=== PATIENT | male | born 1985 | race Caucasian/White ===

== ENCOUNTER 2019-08-04 08:16 | Outpatient (CLI) | payer BC ==
--- NOTE | 2019-08-04 09:35 | ULT ---
GALLBLADDER ULTRASOUND: HISTORY: GERD and chest pain. FINDINGS: The liver demonstrates increased echogenicity consistent with fatty infiltration. There is a focally hypoechoic area measuring 4.8 x 2.1 x 4.1 cm in the left/caudate lobe of the liver which may represe nt mass or focal sparing. No intrahepatic ductal dilatation is seen. No gallstones, gallbladder wal l thickening, or pericholecystic fluid is noted. The right kidney is normal. The pancreas is not we ll visualized due to overlying bowel gas. The common duct measures 3 mm in diameter. No free fluid is seen. IMPRESSION: 1. Fatty liver. 2. Focal mass versus focal fatty sparing in the liver. Further evaluation with contrast-enhanced CT is recommended. 3. No evidence of cholelithiasis. POS: OFF
== END 2019-08-04 08:17 | disposition home or self-care (01) ==
LOC: BICULT 08:16
PROVIDERS: ATTEND Physician Assistant Medical
DX: K21.9 Gastro-esophageal reflux disease without esophagitis (principal); R07.89 Other chest pain; K76.0 Fatty (change of) liver, not elsewhere classified
CPT/HCPCS: 76705

== ENCOUNTER 2019-08-20 12:11 | Outpatient (CLI) | payer BC ==
--- NOTE | 2019-08-20 13:15 | RAD ---
[facility] VIEW ONLY: Date: 08/20/2019 HISTORY: MRI clearance. Concern for metal in left eye. FINDINGS/IMPRESSION: No radiopaque foreign body is seen. POS: [facility]
--- NOTE | 2019-08-20 14:23 | MRI ---
EXAM: MRI of the abdomen without and with contrast COMPARISON: None HISTORY: Abnormal LFTs TECHNIQUE: Multiplanar multi sequence MR images were taken of the abdomen without and with IV contras t. [An MRCP was performed.] FINDINGS: Liver: There is diffuse fatty alteration the liver with an area of focal fatty sparing adjacent to th e gallbladder and falciform ligament. This likely represents the abnormality seen on ultrasound. No suspicious masses. No abnormal enhancement. Gallbladder: No filling defects or gallbladder wall thickening. Common bile duct: Normal caliber without filling defects Adrenal glands: Unremarkable. Kidneys: No hydronephrosis or focal renal lesions. No abnormal areas of enhancement. Spleen: Unremarkable. Pancreas: Unremarkable. No abnormal enhancement. Retroperitoneum: No enlarged lymph nodes Bones: No marrow signal abnormality. IMPRESSION: Fatty liver
[2019-08-20] MEDS ORDERED: Magnevist 469MG/ML 20 ML VIAL ONE (15:02)
== END 2019-08-20 12:12 | disposition home or self-care (01) ==
LOC: BICMRI 12:11
PROVIDERS: ATTEND Physician Assistant Medical
DX: R94.5 Abnormal results of liver function studies (principal); K21.9 Gastro-esophageal reflux disease without esophagitis; R07.89 Other chest pain; R53.83 Other fatigue; R93.89 Abnormal findings on diagnostic imaging of other specified body structures; K76.0 Fatty (change of) liver, not elsewhere classified
CPT/HCPCS: 70210; 74183; A9579

== ENCOUNTER 2020-04-07 08:06 | Outpatient (CLI) | payer BC ==
--- NOTE | 2020-04-07 13:59 | NM ---
HEPATOBILIARY SCAN: Date: 04/07/2020 HISTORY: Gastroesophageal reflux disease without esophagitis. No cholelithiasis on ultrasound of 08/04/2019. RADIOPHARMACEUTICAL: 5.2 mCi technetium-99m mebrofenin injected intravenously. FINDINGS: There is good tracer extraction by the liver with prompt excretion into the biliary tract and small b owel loops, and normal filling of the gallbladder. The calculated gallbladder ejection fraction following an oral fatty meal measures 62%. IMPRESSION: Normal exam. POS: AH
== END 2020-04-07 08:07 | disposition home or self-care (01) ==
LOC: NM 08:06
PROVIDERS: ATTEND Physician Assistant Medical
DX: K21.9 Gastro-esophageal reflux disease without esophagitis (principal); R07.89 Other chest pain
CPT/HCPCS: 78227; A9537

== ENCOUNTER 2020-05-13 06:53 | Outpatient (CLI) | payer BC ==
[2020-05-14 03:12] LABS: SARS-CoV-2 MS2 Positive; SARS-CoV-2 N Gene Negative; SARS-CoV-2 S Gene Negative; SARS-CoV-2 by NAA Not Detected (NotDetected); SARS-CoV-2 orf1ab Negative
== END 2020-05-13 06:54 | disposition home or self-care (01) ==
LOC: LABBT 06:53
PROVIDERS: ATTEND Internal Medicine Gastroenterology
DX: Z20.828 Contact with and (suspected) exposure to other viral communicable diseases (principal)
CPT/HCPCS: 87635; U0003

== ENCOUNTER → 2020-05-18 | Day surgery (SDC) | payer BC | LOC: ENDO/OP 07:49 | PROVIDERS: ATTEND Internal Medicine Gastroenterology | DX: R07.89 Other chest pain (principal); K21.9 Gastro-esophageal reflux disease without esophagitis; F41.9 Anxiety disorder, unspecified; M19.90 Unspecified osteoarthritis, unspecified site; J45.909 Unspecified asthma, uncomplicated; F17.200 Nicotine dependence, unspecified, uncomplicated; Z79.899 Other long term (current) drug therapy; Z88.8 Allergy status to other drugs, medicaments and biological substances | CPT/HCPCS: 91034 ==

== ENCOUNTER 2020-08-12 09:35 | Outpatient (CLI) | payer BC | END 2020-08-12 09:36 | disposition home or self-care (01) | LOC: RAD 09:35 | PROVIDERS: ATTEND Specialist | DX: K21.00 Gastro-esophageal reflux disease with esophagitis, without bleeding (principal) | CPT/HCPCS: 74246 ==

== ENCOUNTER → 2020-08-12 | Day surgery (SDC) | payer BC | LOC: ENDO/OP 08:30 | PROVIDERS: ATTEND Internal Medicine Gastroenterology | DX: K21.9 Gastro-esophageal reflux disease without esophagitis (principal); F41.9 Anxiety disorder, unspecified; M19.90 Unspecified osteoarthritis, unspecified site; J45.909 Unspecified asthma, uncomplicated; F17.200 Nicotine dependence, unspecified, uncomplicated; Z79.899 Other long term (current) drug therapy; K21.00 Gastro-esophageal reflux disease with esophagitis, without bleeding | CPT/HCPCS: 74246; 91010; Q9963 ==

== ENCOUNTER 2024-05-05 07:48 | Emergency (ER) | payer OTHER ==
[2024-05-05] MEDS ORDERED: Cyclobenzaprine 10 MG TAB ONE (08:48)
[2024-05-05] MEDS ORDERED: Ketorolac Tromethamine 30 MG (1 mL) VIAL ONE (08:48)
[2024-05-05] MEDS ORDERED: Lidocaine 4% Patch TD SCH (09:15)
[2024-05-05] MEDS ORDERED: Lidocaine 4% Patch ONE (09:34)
[2024-05-05] MEDS ORDERED: LIDOCAINE Patch Removal TOP SCH (21:15)
== END 2024-05-05 09:20 | disposition home or self-care (01) ==
LOC: ERS 07:48
DX: M25.511 Pain in right shoulder (principal); F17.220 Nicotine dependence, chewing tobacco, uncomplicated
CPT/HCPCS: J1885